=== PATIENT | female | born 1945 | race Caucasian/White ===

== ENCOUNTER 2016-04-01 01:25 | Inpatient (IN) | payer OTHER ==
--- NOTE | ~2016-04-01 | DS ---
Unit #: [id number] #: [id number] Patient: YOBANI HILLIARD [id number] [address] [place], [place] [address] [id number] I MR#: [id number] NAME: YOBANI HILLIARD ROOM: 316 Age: 71 Sex: F Admission Date: 04/01/2016 : 1945 Discharge Date: 04/04/2016 Attending Physician: Zoya Vinson M.D. Primary Care Physician: Jose D Owen M.D. DISCHARGE SUMMARY PRINCIPAL DIAGNOSES 1. Sepsis secondary to left lower lobe healthcare-associated pneumonia. 2. Toxic metabolic encephalopathy secondary to #1, now resolved. 3. Acute hypoxic respiratory failure, now resolved. 4. Delirium secondary to sedating medications, now resolved. 5. Diabetes mellitus type 2, noninsulin requiring with hemoglobin A1c of 5.5. 6. Chronic obstructive pulmonary disease. 7. Paroxysmal supraventricular tachycardia. 8. Chronic pain syndrome, maintained on opiates. 9. Mild vitamin B12 deficiency with vitamin B12 level of 261. CONSULTANTS 1. Dr. Cespedes - Pulmonology. 2. Dr. Ramirez - Neurology. PROCEDURES 1. Cerebral spinal tap/lumbar puncture which was ultimately negative. 2. Two dimensional echocardiogram on April 01, 2016, with ejection fraction of 65%. Mild mitral regurgitation and mild tricuspid regurgitation. Right ventricular systolic pressure [address] of the head without contrast on April 01, 2016, with low attenuation in the left occipital lobe concerning for subacute infarct. 4. CT angiogram of the head and neck on April 01, 2016, with a small focus of plaque in the left proximal ICA. No evidence of carotid vertebral stenosis per NASCET criteria. 5. Chest x-ray on April 01, 2016, with trace bilateral pleural effusions and infiltrate in both lung bases. 6. MRI of the brain without contrast on April 01, 2016, with moderate atrophy. No acute findings. 7. CT of the chest without contrast on April 01, 2016, with interval clearing of multifocal ground glass and airspace densities in the right lung and left upper lobe. There is dense airspace consolidation with air bronchograms in the left lower lobe measuring 9 x 3.5 cm. Persistent moderate left pleural effusion noted. 8. Chest x-ray on April 02, 2016, with infiltrate in the left base. CLINICAL HISTORY/HOSPITAL COURSE Ms. Hilliard is a 71-year-old female who was brought to the emergency department due to increasing confusion. Please refer to H and P for further details. Chest x-ray in the emergency department revealed questionable pneumonia and patient did have a fever or 103. She was subsequently admitted for further evaluation. Unit #: [id number] #: [id number] Patient: YOBANI HILLIARD In regards to patient's pneumonia, she was placed on broad spectrum antibiotics to cover for healthcare-associated pneumonia given recent hospitalization in February 2016. Dr. Cespedes was consulted. Sputums were never obtained. Fever resolved with IV antibiotics. Patient's associated respiratory failure also resolved. A long discussion was had with the patient and her regarding appropriate antibiotic therapy given she failed Levaquin in February. Of course, we cannot rule out aspiration as an etiology when perhaps patient gets confused at home. Ultimately, family wants oral antibiotics and we will treat with doxycycline per Dr. Cespedes's recommendations with close outpatient followup. In regards to patient's altered mental status, she underwent a CT scan which revealed a questionable stroke for which Dr. Ramirez was consulted. Stroke workup was initiated but ultimately patient did not have stroke. Given her altered mental status and fever, she did undergo a lumbar puncture but these studies were negative. The patient also underwent an EEG which is currently pending but she has had no seizure-like activity during hospitalization and I doubt seizure as a source of her altered mental status. I think her altered mental status with toxic metabolic encephalopathy is secondary to infection, fever and likely medication-induced as well. The patient is on multiple sedating medications and has had hospitalizations in the past with associated respiratory failure due to sedating medications. Medications were reviewed by Dr. Cespedes and we are going to hold some of these medications. I will also note that patient has remained off of her metformin throughout this hospitalization and blood sugars have been completely stable. Her A1c is also significantly low and I do not feel a need to continue metformin as an outpatient. The patient is otherwise clinically stable. She will be discharged home today with close followup by Dr. Cespedes. DISCHARGE CONDITION Stable. DISCHARGE STATUS Discharge to home. DISCHARGE MEDICATIONS 1. Doxycycline 100 mg p.o. b.i.d. for seven days. 2. Symbicort 160/4.5 mcg, two puffs b.i.d. 3. Albuterol sulfate nebulizer solution, 3 mL four times daily p.r.n. for shortness of breath. 4. Lyrica 225 mg p.o. b.i.d. 5. Cymbalta 60 mg daily. 6. Xanax 0.5 mg b.i.d. 7. Metoprolol tartrate 25 mg b.i.d. 8. Hydralazine 25 mg p.o. t.i.d. 9. Lisinopril 20 mg b.i.d. 10. Daily multivitamin and vitamin B12 1000 mcg p.o. daily. DISCHARGE INSTRUCTIONS The patient was instructed to follow a low carbohydrate diet. She can increase her activity as tolerated. She has been instructed to hold her Klonopin and her Opana at home. Unit #: [id number] #: [id number] Patient: YOBANI HILLIARD FOLLOWUP The patient will follow up with Dr. Cespedes's nurse practitioner in two weeks and will have a CT of the chest arranged for four to six week time frame from now. She will follow up with Dr. Cespedes in six to eight weeks. Dictated by... Zoya Vinson M.D. RAS/trena TD: 04/05/2016 13:01 JOB #: [id number] DISCHARGE SUMMARY X Zoya Vinson MD X DISCHARGE SUMMARY
--- NOTE | ~2016-04-01 | CR63 ---
[facility] A Service of [facility] & [facility] RADIOLOGY TEXT RESULTS PATIENT: YOBANI NUNEZ LOCATION: [facility] 316-01 : 47 UNIT #: [id number] AGE: [address]: Gerald Kay MD SEX: F ORDER DR: [id number] [facility] [address] [place], [place] [address] [id number] I MR#: [id number] Acc #: [id number] NAME: YOBANI NUNEZ : 1945 SEX: F STUDY DATE/TIME: 04/02/2016 8:03 UNIT: [address] ROOM: [facility] STUDY DESCRIPTION: CR Chest 2 View Attending Physician: Gerald Kay M.D. Ordering Physician: Ngoc Moon M.D. Primary Care Physician: Jose D Owen M.D. MEDICAL IMAGING REPORT This report is preliminary unless electronic signature is present EXAM Chest x-ray 04/02/2016. HISTORY 71-year-old female with 2-day history of shortness of air, altered mental status. TECHNIQUE AP portable upright chest x-ray. FINDINGS Infiltrate or atelectasis in the left posterior lung base, unchanged since yesterday. Mild cardiomegaly. Mid- and upper lungs appear clear. New right arm PICC in good position with tip in the upper SVC. IMPRESSION 1. PICC in good position. 2. Mild infiltrate and/or atelectasis left posterior lung base. Dictated by... Johnnie May M.D. THIS IS AN ELECTRONICALLY VERIFIED REPORT Johnnie May M.D. at 04/02/2016 3:01 PM MAXIM/hillary TD: 04/02/2016 11:46 JOB #: [id number] MEDICAL IMAGING REPORT COPY
--- NOTE | ~2016-04-01 | CT57 ---
[facility] A Service of [facility] RADIOLOGY TEXT RESULTS PATIENT: YOBANI NUNEZ LOCATION: [facility] 316-01 : 47 UNIT #: [id number] AGE: [address]: Zoya Vinson MD SEX: F ORDER DR: [id number] [facility] [address] [place], [place] [address] [id number] I MR#: [id number] Acc #: [id number] NAME: YOBANI NUNEZ : 1945 SEX: F STUDY DATE/TIME: 04/01/2016 12:26 UNIT: A U ROOM: [facility] STUDY DESCRIPTION: CT Chest Wo Cont Attending Physician: Gerald Kay M.D. Ordering Physician: Dada Cespedes M.D. Primary Care Physician: Jose D Owen M.D. MEDICAL IMAGING REPORT This report is preliminary unless electronic signature is present EXAM CT chest without contrast, 04/01/2016, 1226 hours. CLINICAL HISTORY 71-year-old woman with sepsis. Altered mental status with difficulty concentrating AND weakness since last night. Abnormal chest x-ray, 04/01/2016, 0016 hours with possible left lower lobe pneumonia. COMPARISON Chest x-ray, 04/01/2016; prior chest, CT 03/02/2016. TECHNIQUE Helical noncontrasted images were obtained from the thoracic inlet through the adrenal glands. Sagittal and coronal reconstructions were performed. Total exam DLP 569 mGy-cm. This CT exam was performed with one or more of the following radiation dose reduction techniques: automatic exposure control, adjustment of mA and/or kV according to patient size, and iterative reconstruction. FINDINGS Images through the thoracic inlet demonstrate no thyroid mass. There are prominent superior mediastinal lymph nodes including a right paratracheal node measuring 1.4 cm, previously 1.3 cm. There are small partially calcified precarinal, subcarinal nodes. There is soft tissue fullness of both hilar regions similar to prior study, which appears to be predominantly vascular with enlarged pulmonary arteries bilaterally. There is no pericardial fluid. The esophagus is normal. The right lung demonstrates clearing of multifocal ground-glass and airspace densities. There is linear plate-like atelectasis in the right middle lobe and right lower lobe without definite evidence of acute pneumonia on the right. The left upper lobe is now clear with clearing of the patchy density seen on 03/02/2016. There is [id number] residual left pleural effusions similar to prior study. In the anterior [facility] A Service of [facility] RADIOLOGY TEXT RESULTS PATIENT: YOBANI NNUEZ LOCATION: [facility] 316-01 : [birth year] UNIT #: [id number] AGE: [address]: Zoya Vinson MD SEX: F ORDER DR: left lower lobe, there is a dense area of airspace consolidation measuring up to 9 x 3.5 cm, which is new from 03/02/2016 and most likely represents a dense area of acute left lower lobe pneumonia. There is some atelectasis posteriorly at the left base abutting the pleural fluid, which is unchanged. IMPRESSION 1. There is interval clearing of the multifocal ground-glass and airspace densities throughout the right lung and the left upper lobe. 2. There is a dense area of airspace consolidation with air bronchograms in the anterior left lower lobe measuring 9 x 3.5 cm, which is new from 03/02/2016, and likely represents left lower lobe pneumonia. 3. There is a persistent moderate left pleural effusion with mild adjacent atelectasis. This is stable. Previous right pleural effusion has resolved. STAT * RESULT Dictated by... April Singleton M.D. THIS IS AN ELECTRONICALLY VERIFIED REPORT April Singleton M.D. at 04/04/2016 10:40 AM MARTINA/eagle TD: 04/01/2016 13:25 JOB #: [id number] MEDICAL IMAGING REPORT COPY
--- NOTE | ~2016-04-01 | HP ---
Unit #: [id number] #: [id number] Patient: YOBANI NUNEZ [id number] [facility]. [place], [place] [address] [id number] I MR#: [id number] NAME: YOBANI NUNEZ ROOM: 36214 Age: 71 Sex: F Admission Date: 04/01/2016 : 1945 Attending Physician: Ngoc Moon M.D. Primary Care Physician: Jose D Owen M.D. HISTORY AND PHYSICAL CHIEF COMPLAINT Altered mental status. HISTORY OF PRESENT ILLNESS The patient is a 71-year-old female with a past medical history of COPD, diabetes, chronic pain, obstructive sleep apnea, SVT, who presented to the emergency department for evaluation of the above. History is obtained from chart review and discussion with ER staff due to the patient's altered mental status. The patient was apparently initially a Code Stroke as she was last seen normal at 10 p.m. on the evening prior to admission. She had a CT of the head that showed a subacute stroke involving the left occipital lobe. She was seen via robot by Dr. Ramirez. She was initially aphasic but then apparently was using some words and so was thought to be improving somewhat. Ultimately, she was not felt to be a candidate for tPA. During the course of her evaluation, temperature was noted to be 103.4, pulse 111, respirations 21. Chest x-ray shows bibasilar pneumonia. Lactic acid was 2.2. Initial blood pressure was 99/74. She has received 2 L of normal saline. Most recent blood pressure is 94/45. She was given vancomycin, tobramycin, aztreonam in the emergency department. She is being admitted to [facility] for evaluation and further treatment. PAST MEDICAL HISTORY 1. Admission to [facility] March 02 through the 2016 for community-acquired pneumonia. She was discharged home on Levaquin. 2. COPD. The patient has seen Dr. Cespedes in the past. 3. Obstructive sleep apnea. 4. Hypertension. 5. GERD. 6. Chronic pain, maintained on opiates. 7. Anxiety and depression. PAST SURGICAL HISTORY 1. Thoracotomy. 2. Tonsillectomy. 3. Bladder repair. SOCIAL HISTORY The patient lives with her . There is no tobacco or alcohol use. FAMILY HISTORY There is no family history of heart disease or lung disease per record Unit #: [id number] #: [id number] Patient: YOBANI NUNEZ review. ALLERGIES Penicillin, sulfa, erythromycin. HOME MEDICATIONS 1. Cymbalta 60 mg at bedtime. 2. Glucophage 500 mg twice daily. 3. Xanax 0.5 mg twice daily. 4. Multivitamin daily. 5. Lyrica 225 mg twice daily. 6. Oxycodone 20 mg twice daily. 7. Lisinopril 20 mg twice daily. 8. Albuterol four times daily p.r.n. 9. Symbicort two puffs inhaled twice daily. 10. Lopressor 25 mg daily. 11. Hydralazine 25 mg t.i.d. 12. Clonazepam 0.5 mg twice daily. REVIEW OF SYSTEMS A ten point review of systems is unobtainable from the patient due to altered mental status. DIAGNOSTIC STUDIES CARDIOVASCULAR: EKG shows sinus tachycardia with a rate of 108 beats per minute. IMAGING: CT of the head shows subacute stroke involving the left occipital area. Chest x-ray shows trace bilateral effusions with bibasilar consolidation. CT angiogram of the head and neck shows minimal plaque in the left proximal ICA with no flow-limiting stenosis. LABORATORY: Arterial blood gas initially showed pH of 7.348, pCO2 of 55.8, pO2 of 90.9 with an FIO2 of 30%. INR is 1. Troponin is less than 0.05. Complete blood count notable for white blood cell count of 19.3. Basic metabolic panel notable for chloride of 97, glucose 178, lactic acid of 2.2. Urinalysis notable for 1+ leukocyte esterase. Urine tox screen is positive for benzodiazepines and opiates. Rapid flu screen is negative. PHYSICAL EXAMINATION VITAL SIGNS: Temperature is 103.4, pulse 111, respirations 21, blood pressure 99/74. Oxygen saturation 99% on 2 L. GENERAL: The patient is currently quite lethargic. She is opening eyes to sternal rub but is not answering any questions. HEENT: The head is atraumatic. Mucous membranes are dry. NECK: Supple. Trachea is midline. Unit #: [id number] #: [id number] Patient: YOBANI NUNEZ CARDIOVASCULAR: Regular rate and rhythm. LUNGS: Demonstrate a few scattered rhonchi. Breathing is not labored. ABDOMEN: Soft, nontender with bowel sounds present in all four quadrants. EXTREMITIES: Nontender with no pedal edema. NEURO: The patient is lethargic. She apparently was answering some questions earlier; however, during the course of her evaluation in the emergency department she has become less responsive. Again, she is opening eyes to sternal rub. She is withdrawing to painful stimuli. She is not following commands. PSYCH: Unable to assess. SKIN: Skin of examined areas is warm and dry. ASSESSMENT The patient is a 71-year-old female with: 1. Altered mental status. 2. Sepsis: The patient received 2 L of normal saline in the emergency department. 3. Healthcare-associated pneumonia: The patient received vancomycin, tobramycin and aztreonam in the emergency department. 4. Bilateral pleural effusions. 5. Chronic obstructive pulmonary disease. 6. Subacute cerebrovascular accident involving the left occipital lobe: It is unclear if the patient received aspirin in the emergency department. 7. Diabetes. 8. Chronic pain, maintained on opiates. 9. Obstructive sleep apnea. 10. History of supraventricular tachycardia. PLAN 1. Admit to ICU. 2. NPO. 3. Normal saline at 100 mL/hour. 4. TSH, B12 and folate. 5. Stat ABG. 6. Neuro checks. 7. Sepsis protocol. 8. Blood cultures x2. 9. Sputum culture and sensitivity. 10. Procalcitonin level. 11. Vancomycin IV, tobramycin IV, aztreonam IV for healthcare-associated pneumonia pending further workup. 12. Duo-Nebs q.4 hours p.r.n. 13. Consult Dr. Cespedes about pneumonia. 14. 2D echo for further evaluation of bilateral pleural effusions. 15. Serial cardiac enzymes. 16. Supplemental oxygen, 2 to 4 L, to maintain saturations greater than 92%. 17. MRI of the brain without contrast for further evaluation of subacute stroke. 18. Stroke protocol per neurology. 19. Consult Dr. Ramirez regarding subacute stroke. 20. Hemoglobin A1c. 21. Low dose sliding scale insulin with Accu-Cheks. 22. Repeat labs later this morning. 23. P.r.n. Tylenol. 24. Protonix for GI prophylaxis since the patient will be in the ICU. 25. SCDs for DVT prophylaxis. Unit #: [id number] #: [id number] Patient: YOBANI NUNEZ 26. Monitor blood pressure closely. 27. Levophed drip for MAP greater than 65. 38 minutes critical care time spent in the care of this patient (4:20 to 4:58 a.m.). Dictated by Jefferson Camilo/trena TD: 04/01/2016 06:44 JOB #: [id number] HISTORY AND PHYSICAL X Ngoc Moon MD X HISTORY AND PHYSICAL
--- NOTE | ~2016-04-01 | CO ---
Unit #: [id number] #: [id number] Patient: YOBANI NUNEZ [id number] [facility] [address] [place], [place] [address] [id number] Alyson MR#: [id number] NAME: YOBANI NUNEZ ROOM: 316 Age: 71 Sex: F Admission Date: 04/01/2016 : 1945 Attending Physician: Gerald Kay M.D. Primary Care Physician: Jose D Owen M.D. Consultation Date: 04/01/2016 CONSULTATION REPORT PRIMARY CARE DOCTOR Jose D Owen M.D. REASON FOR CONSULTATION Mental status changes, they called subacute infarct, but there is no infarct. PATIENT IDENTIFICATION A 71-year-old right-handed white female, who was evaluated in ER 12 at [facility]. SOURCE OF INFORMATION The medical records, some from the patient, and my detailed discussion with Dr. Erazo last night and also evaluation done by admitting team and I did do video evaluation of this patient early this morning. PROBLEM LIST 1. She was admitted here from 03/02 to 03/04 for community-acquired pneumonia. 2. History of COPD. 3. Obstructive sleep apnea. 4. Hypertension. 5. GERD. 6. Chronic pain syndrome, maintained on opioids. 7. Anxiety and depression. 8. Status post thoracotomy. 9. Tonsillectomy. 10. Bladder repair, now she comes with possible sepsis. 11. Healthcare-associated pneumonia. 12. Bilateral pleural effusion, mild hypercapnia. HISTORY OF PRESENT ILLNESS This is a 71-year-old female, who actually was brought to the emergency room yesterday and initial concern was a possibility of code stroke because she was not talking. There was nothing else focal and the concern was this a primary neurologic issue or was this a metabolic problem, so we did initially CT and CTA and the CT showed questionable area of subacute type decreased attenuation in the occipital lobe, but that further complicates the picture thinking could she have had AFib because this area would not cause a speech arrest and there was nothing else focal. I requested ABG and then her pCO2 was 55.8 and pO2 was 90.9. Pulse ox showed lesser value, but then there was another concern that the patient spiked a fever of 103.4 and pulse was 111. Her blood pressure was in the 90s and it dropped later to 80/40 and the lactic acid came elevated, so at Unit #: [id number] #: [id number] Patient: YOBANI NUNEZ that time, it became more clear that we may be dealing with sepsis. She started talking immediately. was not available to give me a history of what happened. Nobody witnessed the seizure, so our differential at that time was a seizure also, so I gave her Keppra and started further workup. Now her MRI is unremarkable. Her CTA did not show anything, so was it a metabolic condition and other issue was that she is on pain medications and benzodiazepines and could it have been just effect of the medication and she may have taken a double dose or even missed the dose. She is doing much better right now, much more awake and alert. She is on multiple antibiotics. Now the question is could these be seizures and is meningitis ruled out. Her white count is elevated, but there are no other signs or symptoms of meningitis. Her neck is supple and she is doing much better. No falls or injuries known to me. No history of seizures known to me. PAST MEDICAL HISTORY As discussed above. PAST SURGICAL HISTORY As discussed above. ALLERGIES Penicillin, sulfa, and erythromycin. HOME MEDICATIONS Cymbalta 60 mg at bedtime, Glucophage 500 mg b.i.d., Xanax 0.5 mg b.i.d., multivitamin, Lyrica 225 mg b.i.d., oxycodone 20 mg t.i.d., lisinopril 20 mg b.i.d., albuterol q.i.d., Symbicort 2 puffs inhaled b.i.d., Lopressor 25 mg a day, hydralazine 25 mg t.i.d., clonazepam 0.5 mg b.i.d. FAMILY HISTORY No history of heart disease or lung disease or neurologic per family. SOCIAL HISTORY The patient is , lives with her . No tobacco, alcohol, or drug use. REVIEW OF SYSTEMS Mostly as discussed in history of present illness. The patient denies any weight issues, sleep problems, fever, chills, rigors, or sweats anymore. She did not even report that she had a fever yesterday. HEENT: No headaches. No double vision, earache, runny nose, or sore throat. CARDIOVASCULAR: No chest pain, clubbing, cyanosis, orthopnea, or palpitation. PULMONARY: No shortness of air, cough, or expectoration. ABDOMEN: No nausea, vomiting, diarrhea, or constipation. GENITOURINARY: No genitourinary symptoms. EXTREMITIES: No extremity problems. BACK: No back problem. PSYCHIATRIC: No psychotic issue. NEUROLOGIC: No neurologic issue. No other hematologic, dermatologic, endocrine problem known to me. Unit #: [id number] #: [id number] Patient: YOBANI NUNEZ PHYSICAL EXAMINATION VITAL SIGNS: Temperature 98.8, pulse 95, respirations 14, blood pressure 160/87, weight of 151 pounds, BMI was 24, T-max was 103.4. NEUROLOGIC: The patient is awake. She is alert. She thinks this is a and . Otherwise, she is fully oriented. She can name. She can follow commands. No right or left confusion. No finger agnosia. Cranial nerve examination demonstrates full alexandre of vision to confrontation. Eye movements are conjugate. I did not see any ptosis. I did not see any nystagmus. Extraocular movements are intact. Sensation on the face and scalp are normal. Strength of muscles of facial expression normal. Hearing is intact to finger rubs and conversation. Tongue was midline. Uvula was midline. Palate elevation is normal. Head turning and shoulder shrugs were unremarkable. Motor examination demonstrated normal bulk, tone. Strength was essentially 5-/5 all over. Sensory examination intact for soft touch and pain sensation. No extinction was seen. Romberg was not evaluated. Gait examination was deferred. I could not get any reflexes. Toes are equivocal. Coordination was normal. DIAGNOSTIC STUDIES IMAGING STUDIES: Chest x-ray reviewed. LABORATORY RESULTS: Reviewed. B12 level was 261. Folate level was 24.5. Lactic acid was 2.2, it went up to 2.7. White count is 17.6, it was as high as 19.3; H and H of 9.5 and 29.3, it was 13.1 and 39.6; platelet count is 222. Urine drug screen was positive for benzodiazepines and opioids and she has prescriptions. Urinalysis really did not show anything. IMPRESSION This is a very interesting 71-year-old female with now looks like encephalopathy and probably toxic and metabolic. I have not ruled out ASP DEVELOPER infection, but less likely that is ASP DEVELOPER infection, but I am considering to do a lumbar puncture unless we have a clear evidence and primary care can cancel it. She is on multiple antibiotics. She was given Keppra. I will check her EEG and I did continue the Keppra, but she is on good dose of Lyrica, which is a good antiepileptic and I may increase it to 300 mg b.i.d. and go from there. This was obviously not a stroke or other transient ischemic attack otherwise. Aspirin is okay as far as I am concerned and we will see how things turn otherwise, I will keep you informed. Call me for any other questions, issues, or concerns and further treatment will be based on findings if any neurologic. Dictated by... Jefferson Aceves/georges TD: 04/02/2016 02:46 JOB #: [id number] Unit #: [id number] #: [id number] Patient: YOBANI NUNEZ CONSULTATION REPORT X Tiana Ramirez MD CONSULTATION REPORT
--- NOTE | ~2016-04-01 | XA166 ---
[facility] A Service of [facility] & [facility] RADIOLOGY TEXT RESULTS PATIENT: YOBANI NUNEZ LOCATION: C3A 316- : 47 UNIT #: [id number] AGE: [address]: Zoya Vinson MD SEX: F ORDER DR: [id number] [facility] [address] [place], [place] [address] [id number] I MR#: [id number] Acc #: [id number] NAME: YOBANI NUNEZ. : 1945 SEX: F STUDY DATE/TIME: 04/01/2016 14:02 UNIT: C3A PCU ROOM: [facility] STUDY DESCRIPTION: XA PICC Line Placement WO Port Attending Physician: Gerald Kay M.D. Ordering Physician: Gerald Kay M.D. Primary Care Physician: Jose D Owen M.D. MEDICAL IMAGING REPORT This report is preliminary unless electronic signature is present EXAM PICC line insertion INDICATION 71-year female who needs IV access. PRE-PROCEDURE The procedure was explained to the patient and/or patient medical sales representative including risks, benefits, potential complications and potential for alternative forms of treatment. Informed consent was obtained, and prior to initiating the procedure a formal timeout procedure was performed. PROCEDURE Using full standard sterile barrier technique, including caps, gowns, gloves, masks, as well as sterile skin preparation and standard sterile draping, the right basilic vein was prepped and draped in the usual fashion, and real-time sterile ultrasound guidance was used to localize an arm vein and to confirm vessel patency. A hard copy ultrasound image was recorded. After local anesthesia with 1% Xylocaine, the vein was punctured using real-time sterile ultrasound guidance, and an 0.018 guidewire was advanced into the superior vena cava, using fluoroscopic guidance. A 5-Finnish double-lumen PICC was then measured and deployed with the tip positioned in the superior vena cava. The position of the line was documented with a radiographic image. The line was secured in place with an adhesive dressing and an antibiotic patch was applied. Total fluoro time was 0.1 minutes. Reference air kerma 6 mGy. IMPRESSION Successful right arm PICC line placement. [facility]. [facility] A Service of [facility] & [facility] RADIOLOGY TEXT RESULTS PATIENT: YOBANI NUNEZ LOCATION: [facility] 316-01 : [birth year] UNIT #: [id number] AGE: [address]: Zoya Vinson MD SEX: F ORDER DR: Dictated by... Ta Ravi M.D. THIS IS AN ELECTRONICALLY VERIFIED REPORT Ta Ravi M.D. at 04/04/2016 11:20 AM RENETTA/robert TD: 04/01/2016 16:38 JOB #: [id number] MEDICAL IMAGING REPORT COPY
--- NOTE | ~2016-04-01 | CO ---
Unit #: [id number] #: [id number] Patient: YOBANI HILLIARD [id number] [facility] [address]. [place], [place] [address] [id number] I MR#: [id number] NAME: YOBANI HILLIARD ROOM: 316 Age: 71 Sex: F Admission Date: 04/01/2016 : 1945 Attending Physician: Gerald Kay M.D. Primary Care Physician: Jose D Owen M.D. Consultation Date: 04/01/2016 CONSULTATION REPORT REASON FOR CONSULTATION Respiratory failure, shock, ICU. HISTORY OF PRESENT ILLNESS This is a 71-year-old female, well known to me, with multiple medical problems, including polypharmacy and asthma/COPD, who was at this institution in 02/2016 with a left lower lobe pneumonia and other patchy infiltrates on CT scan. She had a pleural effusion and underwent thoracentesis and it appeared to be transudative and sterile. She now is in the emergency room and cannot add to the history. She knows where she is, she states she is at [facility], but has no idea how she got here. According to the ER sheet, she apparently had a change in consciousness. Initial CT scan showed may be a stroke and underwent stroke protocol. Dr. Ramirez has seen the patient and has asked for an LP. MRI revealed no stroke. She denies any problems whatsoever. She may have had a mild cough, but that really was only on prompting in the history. She denied chest pain, abdominal pain, diarrhea, leg pain, swelling, headache, wheezing, significant sputum production, fever, although she did have fever to 103 when in the emergency room. PAST MEDICAL HISTORY Remarkable for asthma/COPD, this recent pneumonia, diabetes, hypertension, polypharmacy, gastroesophageal reflux, significant psychiatric history, history of right thoracotomy in the past secondary to empyema and pleurodesis. MEDICATIONS At home, according to the med rec sheet, again she cannot comment on her medicines include Cymbalta, Glucophage, Xanax, multivitamins, Lyrica, oxycodone, lisinopril, albuterol, Symbicort, Lopressor, hydralazine, Klonopin. ALLERGIES Penicillin, sulfa and erythromycin. SOCIAL HISTORY She is a never smoker. She lives with her . FAMILY HISTORY No definite familial lung disease. REVIEW OF SYSTEMS Entirely negative. Unit #: [id number] #: [id number] Patient: YOBANI HILLIARD PHYSICAL EXAMINATION GENERAL: She knows where she is, she states she is at [facility]. [facility]; she knows who I am, but does appear somewhat dazed, but stable. VITAL SIGNS: She had a T-max of 103, now afebrile, pulse 69, respiratory rate is 18, blood pressure 142/61, 5 feet 6 inches, 151 pounds. HEENT: Pupils are equal, round, and reactive to light. Sclerae anicteric. Head atraumatic. NECK: Supple. No supraclavicular or cervical adenopathy appreciated. Mucous membranes are moist. Teeth appear to be in reasonable dentition. CHEST: No definite wheeze. No stridor. Rare rhonchi. CARDIAC: Reveals regular rate and rhythm. Soft systolic murmur. No gallop. ABDOMEN: Soft and nontender. No hepatomegaly or rebound. EXTREMITIES: Reveal no clubbing, cyanosis, or edema. No calf tenderness. SKIN: Warm. There is no mottling. Feet are mildly cool, but overall her skin is warm. NEUROLOGIC: Grossly intact. No definite focal, motor or sensory deficits, although she did not cooperate with the full exam. DIAGNOSTIC STUDIES IMAGING STUDIES: Chest x-ray, possibly mild retrocardiac density. No large pleural effusion. It is very similar to her past x-ray. Her CT scan was reviewed and showed patchy infiltrates bilaterally and a consolidated left lower lobe with this somewhat loculated effusion and this was at last hospitalization. LABORATORY RESULTS: Her arterial blood gas; pH is 7.30, pCO2 of 55, pO2 of 82 on 2 L. She appears to be alert, and in no distress. BUN is 13, creatinine 0.8. Procalcitonin level 6.68. Lactate 2.7. INR normal. Cardiac enzymes normal. White blood cell count was 19.3, now 17.6, hemoglobin 9.5. Flu screen negative. Tox screen, benzodiazepines and opioids. Blood cultures pending. CARDIOVASCULAR STUDIES: EKG; sinus tachycardia, otherwise unremarkable. IMPRESSION 1. Respiratory failure, hypercapnic hypoxemic. 2. Shock, currently on Levophed. 3. Sepsis syndrome, questionable source, suspect lung. 4. Chronic obstructive pulmonary disease/asthma. 5. Polypharmacy. 6. Recent pneumonia with effusion, status post thoracentesis. 7. Remote right thoracotomy for empyema. 8. Multiple medical problems listed above. PLAN Sepsis protocol, broad-spectrum antibiotics, pressor support, ICU observation. She has had multiple brain scans all of which are fairly unremarkable and have been reviewed. We will check a CT scan of the chest. Cortisol level will be checked. Steroids added if low. Certainly avoid any sedatives for now until her clinical status improves. Certainly would avoid benzodiazepines. Recheck arterial blood gas, chest x-ray and labs in the morning. Thank you very much for allowing me to participate in the care of Ms. Hilliard. Unit #: [id number] #: [id number] Patient: YOBANI HILLIARD Dictated by... Dada Cespedes M.D. VIANEY/georges TD: 04/02/2016 01:22 JOB #: [id number] CONSULTATION REPORT X Dada Cespedes MD CONSULTATION REPORT
--- NOTE | ~2016-04-01 | EKG ---
PATIENT: YOBANI NUNEZ UNIT #: [id number] Ventricular Rate: 108 BPM Atrial Rate: 108 BPM P-R Interval: 140 ms QRS Duration: 96 ms Q-T Interval: 346 ms QTC Calculation(Bezet): 463 ms P [place]: 73 degrees Calculated R [place]: 46 degrees Calculated T [place]: 60 degrees Diagnosis Line: Sinus tachycardia Diagnosis Line: Otherwise normal ECG Diagnosis Line: When compared with ECG of 02-MAR-2016 00:47, Diagnosis Line: No significant change was found Diagnosis Line: Confirmed by GLADIS LOUISE MD ([id number]) on 04/01/2016 Diagnosis Line: 5:21:31 PM INTERPRETING MD: DANI CROUCH
--- NOTE | ~2016-04-01 | CT18 ---
[facility] A Service of [facility] RADIOLOGY TEXT RESULTS PATIENT: YOBANI NUNEZ LOCATION: A 316-01 : [birth year] UNIT #: [id number] AGE: [address]: Gerald Kay MD SEX: F ORDER DR: [id number] [facility] [address] [place], [place] [address] [id number] I MR#: [id number] Acc #: [id number] NAME: YOBANI NUNEZ : 1945 SEX: F STUDY DATE/TIME: 04/01/2016 00:41 [id number] STUDY DESCRIPTION: CT Angio Head Stroke Attending Physician: Gerald Kay M.D. Ordering Physician: Alfonzo Erazo D.O. Primary Care Physician: Jose D Owen M.D. MEDICAL IMAGING REPORT This report is preliminary unless electronic signature is present EXAM Head and neck CT angiogram, 04/01 00:41 hours INDICATION Mental status changes with mumbling. Weakness. Increasing confusion today with sharp mental decline. TECHNIQUE Axial images were obtained through the head and neck following IV contrast administration. 3-D reformats were obtained. This CT exam was performed with one or more of the following radiation dose reduction techniques: automatic exposure control, adjustment of mA and/or kV according to patient size, and iterative reconstruction. COMPARISON No comparison CTA. FINDINGS In the neck, there is a small focus of plaque in the proximal internal carotid artery on the left. No other plaque is seen. There is no evidence of carotid or vertebral stenosis by NASCET criteria. There is no carotid vertebral dissection. Intracranially, no flow-limiting stenosis or vessel cutoff is seen. There is no vascular malformation or aneurysm. The major dural venous sinuses are patent. Note is made of mildly prominent mediastinal lymph nodes. These are unchanged from the patient's chest CT 03/02/2016. They were thought to be benign reactive nodes that time. IMPRESSION 1. Minimal small focus of plaque in the left proximal ICA. There is no evidence of carotid vertebral stenosis in the neck by NASCET [facility] A Service of [facility] RADIOLOGY TEXT RESULTS PATIENT: YOBANI NUNEZ LOCATION: C3A 316-01 : [birth year] UNIT #: [id number] AGE: [address]: Gerald Kay MD SEX: F ORDER DR: criteria, and there is no dissection. 2. There is no intracranial flow-limiting stenosis by NASCET criteria. No vascular malformation of vessel cutoff is seen, and there is no aneurysm. Dictated by... Rufino Dejesus Jr., M.D. THIS IS AN ELECTRONICALLY VERIFIED REPORT Rufino Dejesus Jr., M.D. at 04/04/2016 7:19 AM MABLE/jessie TD: 04/01/2016 07:56 JOB #: [id number] MEDICAL IMAGING REPORT COPY
--- NOTE | ~2016-04-01 | MR18 ---
[facility] A Service of [facility] & [facility] RADIOLOGY TEXT RESULTS PATIENT: YOBANI NNUEZ LOCATION: [facility] 316-01 : 47 UNIT #: [id number] AGE: [address]: Gerald Kay MD SEX: F ORDER DR: [id number] [facility] [address] [place], [place] [address] [id number] I MR#: [id number] Acc #: [id number] NAME: YOBANI NUNEZ : 1945 SEX: F STUDY DATE/TIME: 04/01/2016 9:00 UNIT: CEDOF ROOM: [id number] STUDY DESCRIPTION: MR Brain Wo Contrast Attending Physician: Gerald aKy M.D. Ordering Physician: Ngoc Moon M.D. Primary Care Physician: Jose D Owen M.D. MRI CENTER REPORT This report is preliminary unless electronic signature is present. EXAM Brain MRI. HISTORY Acute mental status decline. The patient has been nonverbal since 03/31/2016. TECHNIQUE Multiplanar imaging brain was performed including diffusion weighted images. FINDINGS On diffusion weighted images, there is no evidence of abnormal restricted diffusion to suggest a recent infarct. The routine brain images show generalized atrophy. No white matter signal abnormalities are seen. No mass lesions are noted. There is no evidence of chronic or recent hemorrhage. Extraaxial structures are unremarkable. IMPRESSION Moderate atrophy. No acute findings. Dictated by... Rufino English M.D. THIS IS AN ELECTRONICALLY VERIFIED REPORT Rufino English M.D. at 04/01/2016 4:37 PM RLF/gz TD: 04/01/2016 09:49 JOB #: [id number] MRI CENTER REPORT COPY
--- NOTE | ~2016-04-01 | CT24 ---
[facility] A Service of [facility] & [facility] RADIOLOGY TEXT RESULTS PATIENT: YOBANI NUNEZ LOCATION: [facility] 316-01 : [birth year] UNIT #: [id number] AGE: [address]: Gerald Kay MD SEX: F ORDER DR: [id number] [facility] [address] [place], [place] [address] [id number] I MR#: [id number] Acc #: [id number] NAME: YOBANI NUNEZ : 1945 SEX: F STUDY DATE/TIME: UNIT: [facility] ROOM: [facility] STUDY DESCRIPTION: CT Angio Neck Stroke Attending Physician: Gerald Kay M.D. Ordering Physician: Alfonzo Erazo D.O. Primary Care Physician: Jose D Owen M.D. MEDICAL IMAGING REPORT This report is preliminary unless electronic signature is present EXAM CT angiogram of the neck HISTORY FINDINGS Please see CT angiogram of the head for results. Dictated by... Rufino Dejesus Jr., M.D. THIS IS AN ELECTRONICALLY VERIFIED REPORT Rufino Dejesus Jr., M.D. at 04/04/2016 7:21 AM MABLE/jessie TD: 04/01/2016 08:00 JOB #: [id number] MEDICAL IMAGING REPORT COPY
--- NOTE | ~2016-04-01 | CT72 ---
[facility] A Service of [facility] RADIOLOGY TEXT RESULTS PATIENT: YOBANI NUNEZ LOCATION: C3A 316-01 : [birth year] UNIT #: [id number] AGE: [address]: Gerald Kay MD SEX: F ORDER DR: [id number] [facility] [address] [place], [place] [address] [id number] I MR#: [id number] Acc #: [id number] NAME: YOBANI NUNEZ : 1945 SEX: F STUDY DATE/TIME: 04/01/2016 00:25 UNIT: CEDOF ROOM: 66219 STUDY DESCRIPTION: CT Head Wo Contrast Stroke Attending Physician: Ngoc Moon M.D. Ordering Physician: Alfonzo Erazo D.O. Primary Care Physician: Jose D Owen M.D. MEDICAL IMAGING REPORT This report is preliminary unless electronic signature is present EXAM Head CT 04/01 0425 hours INDICATIONS Numbness and acute mental status changes and increasing confusion today. This CT exam was performed with one or more of the following radiation dose reduction techniques: automatic exposure control, adjustment of mA and/or kV according to patient size, and iterative reconstruction. FINDINGS Axial images were obtained from the base to the vertex without contrast. Comparison is made with 03/02/2016. Again seen is mild generalized atrophy. Ventricular size and configuration remain normal. No masses are identified, and there is no evidence of acute hemorrhage. There are no skull fractures. 1 image demonstrates an area of low attenuation in the left occipital lobe. This could reflect an area of subacute infarct. Please correlate with physical symptoms. This could be further assessed with MRI if indicated. IMPRESSION A single image demonstrates an area of low attenuation in the left occipital lobe which could reflect a subacute infarct. Correlate with patient's symptoms. Consider MRI for follow up purposes. The rest of the head CT is unchanged from prior. Dictated by... Rufino Dejesus Jr., M.D. THIS IS AN ELECTRONICALLY VERIFIED REPORT Rufino Dejesus Jr., M.D. at 04/04/2016 7:19 AM MABLE/cookie [facility]. [facility] A Service of [facility] & [facility] RADIOLOGY TEXT RESULTS PATIENT: YOBANI NUNEZ LOCATION: [facility] 316-01 : [birth year] UNIT #: [id number] AGE: [address]: Gerald Kay MD SEX: F ORDER DR: TD: 04/01/2016 07:12 JOB #: [id number] MEDICAL IMAGING REPORT COPY
--- NOTE | ~2016-04-01 | CR72 ---
[facility] A Service of [facility] RADIOLOGY TEXT RESULTS PATIENT: YOBANI NUNEZ LOCATION: [facility] 316-01 : [birth year] UNIT #: [id number] AGE: [address]: Gerald Kay MD SEX: F ORDER DR: [id number] [facility] [address] [place], [place] [address] [id number] MR#: [id number] Acc #: [id number] NAME: YOBANI NUNEZ : 1945 SEX: F STUDY DATE/TIME: 04/01/2016 01:16 UNIT: [facility] ROOM: [id number] STUDY DESCRIPTION: CR Chest Single View Portable Attending Physician: Gerald Kay M.D. Ordering Physician: Alfonzo Erazo D.O. Primary Care Physician: Jose D Owen M.D. MEDICAL IMAGING REPORT This report is preliminary unless electronic signature is present EXAM Portable chest, 04/01 at 01:16. INDICATIONS Shortness of air and hypoxia with mental status changes. Patient last seen normal at 10 o'clock last night. FINDINGS AP portable chest is compared with 03/03/2016. Cardiac and mediastinal contours are stable. There are small bilateral pleural effusions. There is some mild residual atelectasis or infiltrate in the lung bases. No pneumothorax is seen. IMPRESSION Trace bilateral pleural effusions with mild residual atelectasis or infiltrate in both lung bases. Dictated by... Rufino Dejesus Jr., M.D. THIS IS AN ELECTRONICALLY VERIFIED REPORT Rufino Dejesus Jr., M.D. at 04/04/2016 7:19 AM MABLE/eagle TD: 04/01/2016 08:03 JOB #: [id number] MEDICAL IMAGING REPORT COPY
--- NOTE | ~2016-04-01 | EE ---
Unit #: [id number] #: [id number] Patient: YOBANI NUNEZ [id number] [address] [address] [id number] I MR#: [id number] NAME: YOBANI NUNEZ : 1945 SEX: F STUDY DATE/TIME: 04/04/2016 UNIT: C3A PCU ROOM: [facility] STUDY DESCRIPTION: Attending Physician: Zoya Vinson M.D. Referring Physician: Alfonzo Erazo D.O. Primary Care Physician: Jose D Owen M.D. NEURODIAGNOSTICS REPORT EXAM EEG. REASON FOR THE STUDY Mental status changes. EEG DESCRIPTION This is an inpatient, digitally recorded, multimontage adult EEG with leads placed according to the International 10/20 System. Hyperventilation and photic stimulation were not done. This EEG is mostly in the drowsy and asleep state. The patient was essentially initially drowsy with 5 to 6 Hz posterior background rhythm and then fell asleep and was mostly asleep or drowsy throughout the recording. Nothing suggesting seizure. Nothing suggesting status. No clinical events. Hypoventilation and photic stimulation was not done. No asymmetry was seen. IMPRESSION This could be considered a normal drowsy and asleep state but if the patient was otherwise stimulated which I really did not see then this could be just a normal drowsy and asleep state or it could represent some encephalopathy. Nonetheless, nothing suggesting seizure or status so clinical correlation is recommended. An EEG like this does not rule out epilepsy, so epilepsy is being considered. Please consider re-evaluation and clinical evaluation. Dictated by... Jefferson Aceves/carrol TD: 04/04/2016 17:19 JOB #: [id number] Unit #: [id number] #: [id number] Patient: YOBANI NUNEZ NEURODIAGNOSTICS REPORT X Tiana Ramirez MD NEURODIAGNOSTICS REPORT
--- NOTE | ~2016-04-01 | XA198 ---
[facility] A Service of [facility] RADIOLOGY TEXT RESULTS PATIENT: YOBANI NUNEZ LOCATION: [facility] 316-01 : [birth year] UNIT #: [id number] AGE: [address]: Gerald Kay MD SEX: F ORDER DR: [id number] [address] [place], [place] [address] [id number] I MR#: [id number] Acc #: [id number] NAME: YOBANI NUNEZ : 1945 SEX: F STUDY DATE/TIME: 04/01/2016 13:58 UNIT: A PCU ROOM: [facility] STUDY DESCRIPTION: XA Spinal Puncture Attending Physician: Gerald Kay M.D. Ordering Physician: Dada Cespedes M.D. Primary Care Physician: Jose D Owen M.D. MEDICAL IMAGING REPORT This report is preliminary unless electronic signature is present EXAM Fluoroscopically-guided lumbar puncture 04/01/2016 INDICATIONS 71-year-old female with confusion. Also history of sharp mental decline. The fluoro time was 0.6 minutes. Reference air kerma was 66 mGy. PROCEDURE Risks, benefits and alternatives of the procedure were discussed with the patient's family international representative and informed consent was obtained. In the procedure room a time-out was performed confirming correct patient and procedure. All elements of maximum sterile-barrier technique utilized according to guidelines appropriate for the procedure. TECHNIQUE/FINDINGS The skin overlying the lower lumbar spine was prepped and draped in the usual sterile fashion. 1% lidocaine utilized to anesthetize the skin and underlying subcutaneous tissues. Next under fluoroscopic guidance 20-gauge spinal needles were advanced into the subarachnoid space at the L3-L4 level and 8 mL of clear CSF was obtained and sent for the requested labs. The needle was removed and a sterile dressing was applied. No immediate complications. IMPRESSION Technically successful fluoroscopically-guided lumbar puncture. Dictated by... Ta Ravi M.D. [facility] A Service of [facility] RADIOLOGY TEXT RESULTS PATIENT: YOBANI NUNEZ LOCATION: [facility] 316-01 : [birth year] UNIT #: [id number] AGE: [address]: Gerald Kay MD SEX: F ORDER DR: THIS IS AN ELECTRONICALLY VERIFIED REPORT Ta Ravi M.D. at 04/01/2016 4:51 PM Francie TD: 04/01/2016 16:34 JOB #: [id number] MEDICAL IMAGING REPORT COPY
[2016-04-01 00:37] LABS: ARTERIAL BLD GAS O2 SATURATION 95.5 % (90.0-100.0); ARTERIAL BLOOD GAS ALLEN TEST NORMAL; ARTERIAL BLOOD GAS ART SITE LEFT RADIAL; ARTERIAL BLOOD GAS CARBOXY HB 1.2 %sat (0.0-9.0); ARTERIAL BLOOD GAS DELIVERY NASAL CANNULA; ARTERIAL BLOOD GAS HCO3 30.6 mmol/L; ARTERIAL BLOOD GAS MET HB 0.7 %sat (0.0-2.0); ARTERIAL BLOOD GAS PCO2 55.8 mmHg (35.0-45.0); ARTERIAL BLOOD GAS PO2 90.9 mmHg (80.0-100); ARTERIAL BLOOD GAS pH 7.348 (7.350-7.450); ARTERIAL DRAW? YES
[2016-04-01 00:50] LABS: POC - CREATININE 0.75 mg/dL (0.44-1.03); POC - GFR >60.0 mL/min (>60)
[2016-04-01 00:51] LABS: BASOPHIL# 0.1 X10e3 (0-0.3); BASOPHIL% 0.3 % (0-2.5); EOSINOPHIL# 0.5 X10e3 (0-0.7); EOSINOPHIL% 2.5 % (0.0-7.0); HEMATOCRIT 39.6 % (35.0-45.0); HEMOGLOBIN 13.1 gm/dL (12.0-16.0); LYMPHOCYTE# 0.6 X10e3 (1.0-3.5); LYMPHOCYTE% 2.9 % (17.0-45.0); MEAN CORPUSCULAR HEMOGLOBIN 30.4 PG (28-34); MEAN CORPUSCULAR HGB CONC 33.1 g/dL (30-36); MEAN PLATELET VOLUME 9.1 FL (6.5-11.5); MONOCYTE# 0.7 X10e3 (0-1.0); MONOCYTE% 3.6 % (3.0-12.0); NEUTROPHIL# 17.5 X10e3 (1.5-7.1); NEUTROPHIL% 90.7 % (40-75); PLATELET COUNT 295 X10e3 (140-420); RED BLOOD COUNT 4.31 X10e (3.90-5.30); RED CELL DISTRIBUTION WIDTH 17.4 % (11.0-15.5); WHITE BLOOD COUNT 19.3 X10e3 (4.0-10.5)
[2016-04-01 00:52] LABS: DIFF IND YES
[2016-04-01 01:08] LABS: PROTHROMBIN TIME (PATIENT) 10.6 SECONDS (9.6-11.5)
[2016-04-01 01:09] LABS: BLOOD UREA NITROGEN 13 mg/dL (9-23); BUN/CREATININE RATIO 16.25; CALCIUM SERUM 9.7 mg/dL (8.4-10.2); CARBON DIOXIDE 30 mmol/L (22-31); CHLORIDE 97 mmol/L (100-111); CREATININE SERUM 0.8 mg/dL (0.6-1.4); GLOM FILT RATE Estimated ABOVE60 mL/min (>60); GLUCOSE FASTING 178 mg/dL (70-110); POTASSIUM 4.9 mmol/L (3.5-5.1); SODIUM 137 mmol/L (135-145)
[2016-04-01 01:11] LABS: POC - CKMB <1.0 ng/mL (0.0-7.9); POC - TROPONIN <0.05 ng/mL (<=0.05)
[2016-04-01 01:17] LABS: PLATELET ESTIMATE NORMAL (NORMAL); STOMATOCYTE PRESENT
[2016-04-01 01:18] LABS: ANISOCYTOSIS MOD
[2016-04-01 01:22] LABS: URINE SOURCE CLEAN CATCH
[~2016-04-01 01:25] MED LIST: ABILIFY PO; ABILIFY30 MG PO; ALBUTEROL MININEB NEB; ALPRAZOLAM PO; ALPRAZOLAM0.5 MG PO; CATAPRES0.1 MG PO; CENTRUM PO; CLONIDINE PO; COMBIVENT INH14.7 GM INH; COMBIVENT MININEB INH; CYMBALTA PO; DICYCLOMINE HCL20 MG PO; DULOXETINE HCL60 MG PO; DURAGESIC TOP; DURAGESIC100 MCG EXT; DURAGESIC75 MCG EXT; GLUCOPHAGE500 M1 PO; GLUCOPHAGE500 MG PO; HYDRALAZINE HCL25 MG PO; KEFLEX500 MG PO; KLONOPIN0.5 MG PO; LEVAQUIN PO; LEVAQUIN750 M1 PO; LEVAQUIN750 MG PO; LIDODERM30 EA TOP; LISINOPRIL20 MG PO; LOPRESSOR PO; LUNESTA2 M1 PO; LYRICA PO; LYRICA100 MG PO; LYRICA225 MG PO; LYRICA300 MG PO; MACROBID100 MG PO; MAPAP325 MG PO; METFORMIN HCL500 M1 PO; METFORMIN HYDRO25 GM MC; METHADONE HCL10 MG PO; METHADONE PO; MIRALAX255 GM PO; MULTI VITAMIN1 EACH PO; NEBULIZER1 PKT MC; NEURONTIN PO; NORVASC10 MG PO; OPANA ER20 M1 PO; OXYCODONE HCL10 MG PO; OXYCODONE HCL20 M1 PO; PERCOCET 5-3251 TAB PO; PREDNISONE PO; PROVIGIL100 MG PO; PROZAC PO; ROXICODONE5 MG PO; SYMBICORT 160/4.6 GM IH; SYMBICORT INH; TOPAMAX PO; VIBRAMYCIN100 M1 PO; XANAX1 MG PO; ZESTRIL5 MG PO; ZITHROMAX PO; ZOLOFT100 MG PO; ZOLOFT50 MG PO; ZYVOX600 MG PO
[2016-04-01 01:35] LABS: URINE APPEARANCE CLEAR; URINE BILIRUBIN NEG (NEG); URINE BLOOD NEG (NEG); URINE COLOR YELLOW; URINE GLUCOSE NEG (NEG); URINE KETONE NEG (NEG); URINE LEUKOCYTE ESTERASE 1+ (NEG); URINE NITRATE NEG (NEG); URINE PROTEIN NEG (NEG); URINE SPECIFIC GRAVITY 1.017 (1.003-1.035); URINE UROBILINOGEN 0.2 MG/DL (NEG)
[2016-04-01 01:37] LABS: URBCS1 AUWI 0-2 /[HPF] (0-2); URINE BACTERIA AUWI NEG (NEGATIVE); URINE SQUAMOUS EPITHELIAL CELL NONE SEEN /[HPF]; UWBCS1 AUWI 0-2 (0-5)
[2016-04-01 01:45] LABS: CULTURE INDICATED? NO
[2016-04-01 02:09] LABS: AMPHETAMINE NEG (NEG); BARBITURATES NEG (NEG); BENZODIAZEPINES POS (NEG); COCAINE NEG (NEG); MARIJUANA NEG (NEG); OPIATES POS (NEG); TRICYCLIC ANTIDEPRESSANTS NEG (NEG); U METHADONE NEG (NEG)
[2016-04-01 02:15] LABS: INFLUENZA A NEG (NEG); INFLUENZA B NEG (NEG)
[2016-04-01 05:09] LABS: ARTERIAL BLD GAS O2 SATURATION 94.5 % (90.0-100.0); ARTERIAL BLOOD GAS CARBOXY HB 1.1 %sat (0.0-9.0); ARTERIAL BLOOD GAS HCO3 27.1 mmol/L; ARTERIAL BLOOD GAS MET HB 0.8 %sat (0.0-2.0); ARTERIAL BLOOD GAS PO2 82.6 mmHg (80.0-100); ARTERIAL BLOOD GAS pH 7.301 (7.350-7.450)
[2016-04-01 05:10] LABS: ARTERIAL BLOOD GAS ART SITE LEFT FEMORAL; ARTERIAL BLOOD GAS DELIVERY NASAL CANNULA; ARTERIAL DRAW? YES
[2016-04-01 05:53] LABS: BASOPHIL% 0.1 % (0-2.5); EOSINOPHIL# 0.2 X10e3 (0-0.7); EOSINOPHIL% 1.2 % (0.0-7.0); HEMATOCRIT 29.3 % (35.0-45.0); LYMPHOCYTE% 5.6 % (17.0-45.0); MEAN CELL VOLUME 91.9 FL (83-96); MEAN CORPUSCULAR HEMOGLOBIN 29.6 PG (28-34); MEAN CORPUSCULAR HGB CONC 32.3 g/dL (30-36); MONOCYTE# 0.9 X10e3 (0-1.0); MONOCYTE% 4.9 % (3.0-12.0); NEUTROPHIL# 15.5 X10e3 (1.5-7.1); NEUTROPHIL% 88.2 % (40-75); PLATELET COUNT 222 X10e3 (140-420); RED BLOOD COUNT 3.19 X10e (3.90-5.30); RED CELL DISTRIBUTION WIDTH 17.8 % (11.0-15.5); WHITE BLOOD COUNT 17.6 X10e3 (4.0-10.5)
[2016-04-01 06:00] LABS: HEMOGLOBIN 9.5 gm/dL (12.0-16.0)
[2016-04-01 06:01] LABS: DIFF IND NO
[2016-04-01 06:32] LABS: ALBUMIN SERUM 2.8 g/dL (3.5-5.0); ALKALINE PHOSPHATASE 52 U/L (32-92); ALT (SGPT) 9 U/L (10-40); AST (SGOT) 18 U/L (10-42); BILIRUBIN,TOTAL 0.5 mg/dL (0.2-2.0); BLOOD UREA NITROGEN 13 mg/dL (9-23); BUN/CREATININE RATIO 16.25; CALCIUM SERUM 8.4 mg/dL (8.4-10.2); CARBON DIOXIDE 26 mmol/L (22-31); CHLORIDE 107 mmol/L (100-111); CREATININE SERUM 0.8 mg/dL (0.6-1.4); GLOM FILT RATE Estimated ABOVE60 mL/min (>60); GLUCOSE FASTING 114 mg/dL (70-110); POTASSIUM 4.7 mmol/L (3.5-5.1); PROTEIN TOTAL SERUM 5.2 g/dL (6.0-8.3); SODIUM 140 mmol/L (135-145)
[2016-04-01 06:51] LABS: FOLATE (FOLIC ACID) >24.0 ng/mL (>5.8)
[2016-04-01 07:17] LABS: PROCALCITONIN 6.68 NG/ML
[2016-04-01 13:49] LABS: CK TOTAL 19 IU/L (26-140)
[2016-04-01 15:13] LABS: CSF APPEARANCE CLEAR (CLEAR); CSF TUBE NUMBER 3; CSF XANTHACHROMIC NO
[2016-04-01 15:14] LABS: CSF RBC 22 CMM (0); CSF WBC 5 CMM (0-8)
[2016-04-01 15:29] LABS: CSF APPEARANCE CLEAR (CLEAR); CSF RBC 623 CMM (0); CSF TUBE NUMBER 1; CSF WBC 0 CMM (0-8); CSF XANTHACHROMIC NO
[2016-04-01 15:53] LABS: GLUCOSE-CSF 91 mg/dL (50-80); PROTEIN-CSF 29 mg/dL (15-45)
[2016-04-01 15:55] LABS: CSF LYMPHOCYTE 0 %; CSF MONOCYTE 0 %; CSF NEUTROPHIL 0 %
[2016-04-01 17:11] LABS: CSF LYMPHOCYTE 75 %; CSF MONOCYTE 12 %; CSF NEUTROPHIL 12 %
[2016-04-02 03:50] LABS: ARTERIAL BLD GAS O2 SATURATION 95.6 % (90.0-100.0); ARTERIAL BLOOD GAS CARBOXY HB 1.1 %sat (0.0-9.0); ARTERIAL BLOOD GAS HCO3 28.5 mmol/L; ARTERIAL BLOOD GAS PCO2 48.9 mmHg (35.0-45.0); ARTERIAL BLOOD GAS PO2 90.3 mmHg (80.0-100); ARTERIAL BLOOD GAS pH 7.374 (7.350-7.450)
[2016-04-02 03:51] LABS: ARTERIAL BLOOD GAS ALLEN TEST NORMAL; ARTERIAL BLOOD GAS ART SITE LEFT RADIAL; ARTERIAL BLOOD GAS DELIVERY NASAL CANNULA; ARTERIAL DRAW? YES
[2016-04-02 05:58] LABS: CRYPTO AG CSF/SERUM NEG (NEG); CRYPTO AG SOURCE CSF
[2016-04-02 07:27] LABS: BASOPHIL% 0.4 % (0-2.5); EOSINOPHIL# 0.3 X10e3 (0-0.7); HEMATOCRIT 31.2 % (35.0-45.0); HEMOGLOBIN 10.3 gm/dL (12.0-16.0); LYMPHOCYTE# 0.9 X10e3 (1.0-3.5); LYMPHOCYTE% 9.3 % (17.0-45.0); MEAN CELL VOLUME 92.2 FL (83-96); MEAN CORPUSCULAR HEMOGLOBIN 30.4 PG (28-34); MEAN PLATELET VOLUME 9.6 FL (6.5-11.5); MONOCYTE# 0.5 X10e3 (0-1.0); MONOCYTE% 5.4 % (3.0-12.0); NEUTROPHIL# 7.7 X10e3 (1.5-7.1); NEUTROPHIL% 81.9 % (40-75); PLATELET COUNT 219 X10e3 (140-420); RED BLOOD COUNT 3.38 X10e (3.90-5.30); RED CELL DISTRIBUTION WIDTH 17.3 % (11.0-15.5); WHITE BLOOD COUNT 9.4 X10e3 (4.0-10.5)
[2016-04-02 07:30] LABS: DIFF IND NO
[2016-04-02 07:54] LABS: ALBUMIN SERUM 3.2 g/dL (3.5-5.0); ALKALINE PHOSPHATASE 62 U/L (32-92); ALT (SGPT) 8 U/L (10-40); AST (SGOT) 17 U/L (10-42); BILIRUBIN,TOTAL 0.9 mg/dL (0.2-2.0); BLOOD UREA NITROGEN 9 mg/dL (9-23); CALCIUM SERUM 8.5 mg/dL (8.4-10.2); CARBON DIOXIDE 27 mmol/L (22-31); CHLORIDE 110 mmol/L (100-111); CREATININE SERUM 0.4 mg/dL (0.6-1.4); GLOM FILT RATE Estimated ABOVE60 mL/min (>60); GLUCOSE FASTING 112 mg/dL (70-110); POTASSIUM 4.2 mmol/L (3.5-5.1); PROTEIN TOTAL SERUM 6.1 g/dL (6.0-8.3); SODIUM 139 mmol/L (135-145)
[2016-04-02 10:34] LABS: HSV 1 DNA Not Detected (Not Detected); HSV 2 DNA Not Detected (Not Detected)
[2016-04-03 05:40] LABS: HEMATOCRIT 33.2 % (35.0-45.0); HEMOGLOBIN 10.8 gm/dL (12.0-16.0); MEAN CELL VOLUME 90.1 FL (83-96); MEAN CORPUSCULAR HEMOGLOBIN 29.3 PG (28-34); MEAN CORPUSCULAR HGB CONC 32.5 g/dL (30-36); MEAN PLATELET VOLUME 8.9 FL (6.5-11.5); RED BLOOD COUNT 3.69 X10e (3.90-5.30); RED CELL DISTRIBUTION WIDTH 17.3 % (11.0-15.5)
[2016-04-03 06:18] LABS: BLOOD UREA NITROGEN 7 mg/dL (9-23); CALCIUM SERUM 9.6 mg/dL (8.4-10.2); CARBON DIOXIDE 24 mmol/L (22-31); CHLORIDE 102 mmol/L (100-111); CREATININE SERUM 0.5 mg/dL (0.6-1.4); GLOM FILT RATE Estimated ABOVE60 mL/min (>60); GLUCOSE FASTING 127 mg/dL (70-110); MAGNESIUM 1.3 mg/dL (1.6-3.0); POTASSIUM 3.2 mmol/L (3.5-5.1); SODIUM 137 mmol/L (135-145)
[2016-04-04 06:21] LABS: BASOPHIL% 0.5 % (0-2.5); EOSINOPHIL# 0.7 X10e3 (0-0.7); EOSINOPHIL% 8.7 % (0.0-7.0); HEMATOCRIT 32.6 % (35.0-45.0); HEMOGLOBIN 10.7 gm/dL (12.0-16.0); LYMPHOCYTE# 0.8 X10e3 (1.0-3.5); LYMPHOCYTE% 11.3 % (17.0-45.0); MEAN CELL VOLUME 90.4 FL (83-96); MEAN CORPUSCULAR HEMOGLOBIN 29.5 PG (28-34); MEAN CORPUSCULAR HGB CONC 32.7 g/dL (30-36); MEAN PLATELET VOLUME 8.8 FL (6.5-11.5); MONOCYTE# 0.7 X10e3 (0-1.0); NEUTROPHIL# 5.3 X10e3 (1.5-7.1); NEUTROPHIL% 70.5 % (40-75); PLATELET COUNT 300 X10e3 (140-420); RED BLOOD COUNT 3.61 X10e (3.90-5.30); RED CELL DISTRIBUTION WIDTH 17.5 % (11.0-15.5)
[2016-04-04 06:37] LABS: WHITE BLOOD COUNT 7.5 X10e3 (4.0-10.5)
[2016-04-04 06:38] LABS: DIFF IND NO
[2016-04-04 07:29] LABS: BLOOD UREA NITROGEN 6 mg/dL (9-23); CALCIUM SERUM 9.5 mg/dL (8.4-10.2); CARBON DIOXIDE 27 mmol/L (22-31); CHLORIDE 106 mmol/L (100-111); CREATININE SERUM 0.5 mg/dL (0.6-1.4); GLOM FILT RATE Estimated ABOVE60 mL/min (>60); GLUCOSE FASTING 124 mg/dL (70-110); MAGNESIUM 1.8 mg/dL (1.6-3.0); POTASSIUM 3.5 mmol/L (3.5-5.1); SODIUM 141 mmol/L (135-145)
[2016-04-04] MEDS ORDERED: MORGIDOX100 MG PO (14:10)
[2016-04-04] MEDS ORDERED: B-121000 MC1 PO (14:26)
== END 2016-04-04 15:00 | disposition home or self-care (01) | DRG 871 ==
LOC: CED 01:25 → CEDOF 04:40 → C3A PCU 16:16
PROVIDERS: Emergency Medicine; Family Medicine; Internal Medicine
PROC: B246YZZ Ultrasonography of Right and Left Heart using Other Contrast (ICD-10-PCS; principal; 2016-04-01)
PROC: B32GYZZ Computerized Tomography (CT Scan) of Bilateral Vertebral Arteries using Other Contrast (ICD-10-PCS; 2016-04-01)
PROC: 009U3ZX Drainage of Spinal Canal, Percutaneous Approach, Diagnostic (ICD-10-PCS; 2016-04-01)
PROC: B01BYZZ Fluoroscopy of Spinal Cord using Other Contrast (ICD-10-PCS; 2016-04-01)
PROC: 02HV33Z Insertion of Infusion Device into Superior Vena Cava, Percutaneous Approach (ICD-10-PCS; 2016-04-01)
PROC: B518YZA Fluoroscopy of Superior Vena Cava using Other Contrast, Guidance (ICD-10-PCS; 2016-04-01)
PROC: B548ZZA Ultrasonography of Superior Vena Cava, Guidance (ICD-10-PCS; 2016-04-01)
DX: A41.9 Sepsis, unspecified organism (principal); J18.9 Pneumonia, unspecified organism; J96.21 Acute and chronic respiratory failure with hypoxia; R65.21 Severe sepsis with septic shock; G92 Toxic encephalopathy; I47.1 Supraventricular tachycardia; E11.9 Type 2 diabetes mellitus without complications; J44.9 Chronic obstructive pulmonary disease, unspecified; G89.4 Chronic pain syndrome; E53.8 Deficiency of other specified B group vitamins; G47.33 Obstructive sleep apnea (adult) (pediatric); Z88.1 Allergy status to other antibiotic agents; Z88.0 Allergy status to penicillin; Z88.2 Allergy status to sulfonamides
CPT/HCPCS: 36415; 36600; 70450; 70496; 70498; 70551; 71010; 71020; 71250; 76937; 77001; 77003; 80048; 80053; 80200; 80202; 80307; 81003; 82308; 82533; 82550; 82553; 82565; 82607; 82746; 82803; 82945; 82947; 83036; 83605; 83735; 84157; 84443; 84484; 85025; 85027; 85610; 87040; 87070; 87205; 87449; 87529; 87804; 87899; 89051; 93005; 93306; 94640; 94760; 95816; 97162; 97166; 97530; 99291; C1751; C9113; G8978-GP; G8979-GP; G8987-GO; G8988-GO; J0360; J1815; J3260; J3370; J3420; J3475; Q9967

== ENCOUNTER → 2016-10-22 | Outpatient (CLI) | payer OTHER ==
[~2016-10-22] MED LIST changes: +B-121000 MC1 PO; +MORGIDOX100 MG PO
--- NOTE | ~2016-10-22 | MR175 ---
[facility] A Service of [facility] RADIOLOGY TEXT RESULTS PATIENT: YOBANI NUNEZ [facility] : [birth year] UNIT #: [id number] AGE: [address]: Brett Bates II, MD SEX: F ORDER DR: [id number] [facility] [address] [place], [place] [address] [id number] O MR#: [id number] Acc #: [id number] NAME: YOBANI NUNEZ : 1945 SEX: F STUDY DATE/TIME: 10/22/2016 13:35 UNIT: [facility] ROOM: STUDY DESCRIPTION: MR Thoracic WWo Contrast Attending Physician: Brett Bates II., M.D. Referring Physician: Brett Bates II., M.D. Ordering Physician: Brett Bates II., M.D. Primary Care Physician: Jose D Owen M.D. MRI CENTER REPORT This report is preliminary unless electronic signature is present. EXAM Thoracic MRI with and without HISTORY Balance impairment in a 71-year-old female. Patient has had neuropathy for 17 years. Patient had an adverse medication reaction 17 years ago with jaw movement constantly per patient. She complains of severe imbalance and gait disturbance, increasing over the last 17 years. No history of surgery or cancer. COMMENT MRI of the thoracic spine was performed prior to and following intravenous administration of 12 mL of MultiHance. There is no prior study of the thoracic spine. Sagittal alignment is normal in the thoracic spine. I believe there is some degenerative retrolisthesis of C6 on C7 seen on the sagittal localizer only. This is best pursued with a cervical spine MRI. There is mild chronic anterior wedging of the T11 vertebral body. Thoracic intervertebral discs are mildly desiccated in general. Mild concentric disc bulging and T11-12 and posterior disc bulging at T10-11, T12-L1. Partly seen is a posterior disc protrusion at L1-2 with an annular fissure. There is no thoracic canal stenosis. The protrusions are more prominent in a right paramedian location at T10-11, T11-12. The thoracic cord is normal in size and signal intensity. Following contrast administration, there is no pathologic cord enhancement. Marrow signal intensity is unremarkable. IMPRESSION 1. Relatively mild thoracic degenerative changes but no evidence for thoracic canal stenosis. No reproducible focus of thoracic cord signal abnormality or pathologic cord enhancement. [facility]. [facility] A Service of [facility] RADIOLOGY TEXT RESULTS PATIENT: YOBANI NUNEZ LOCATION: [facility] : [birth year] UNIT #: [id number] AGE: [address]: Brett Bates II, MD SEX: F ORDER DR: 2. Minor chronic anterior wedging at T11. 3. Partly seen is degenerative disc disease at C6-7 and cervical spine which is best pursued with cervical MRI if more information is needed. Dictated by... Dalila Gonzalez M.D. THIS IS AN ELECTRONICALLY VERIFIED REPORT Dalila Gonzalez M.D. at 10/25/2016 8:47 AM ALYSSA/cira TD: 10/25/2016 01:57 JOB #: [id number] MRI CENTER REPORT Page 1 of 1 COPY
[2016-10-22 14:00] LABS: POC - CREATININE 0.73 mg/dL (0.44-1.03); POC - GFR >60.0 mL/min (>60)
== END | disposition home or self-care (01) ==
LOC: CMRI 10-21 09:00
PROVIDERS: Psychiatry & Neurology Neurology
DX: R26.89 Other abnormalities of gait and mobility (principal); M47.894 Other spondylosis, thoracic region; M48.54XA Collapsed vertebra, not elsewhere classified, thoracic region, initial encounter for fracture; M50.323 Other cervical disc degeneration at C6-C7 level
CPT/HCPCS: 72157; 82565; A9577